=== PATIENT | male | born 1990 | race Caucasian/White ===

== ENCOUNTER 2018-07-05 19:25 | Emergency (ER) | payer BC ==
[2018-07-05 19:54] VITALS: BP 130/72
--- NOTE | 2018-07-05 20:12 | ED ---
Throat Pain/Nasal Congestion - HPI Summary HPI Summary: 28 yr old male with the complaint of decreased hearing both ears for two weeks, and feeling like they are plugged. he has not had cold or sinus symptoms. No sore throat. 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 4 yrs ago he had same symptoms and had cerumen impactions. removal of the wax relieved his hearing difficulty. He states he received real stressful news yesterday and while driving felt SOB and hyperventilated. He has not had any symptoms today. Denies CP, cough, fever, chills. - History of Current Complaint Chief Complaint: UCRespiratory Time Seen by Provider: 07/05/18 19:58 - Allergies/Home Medications Allergies/Adverse Reactions: Allergies Allergy/AdvReac Type Severity Reaction Status Date / Time No Known Allergies Allergy Verified 07/05/18 19:47 PMH/Surg Hx/FS Hx/Imm Hx Endocrine/Hematology History: Denies: Hx Diabetes Respiratory History: Reports: Hx Asthma - Surgical History Surgery Procedure, Year, and Place: appy, tonsils. collarbone- plates/screws Infectious Disease History: No Infectious Disease History: Denies: Hx Clostridium Difficile, Hx Hepatitis, Hx Human Immunodeficiency Virus (HIV), Hx of Known/Suspected MRSA, Hx Shingles, Hx Tuberculosis, Hx Known/ Suspected VRE, Hx Known/Suspected VRSA, History Other Infectious Disease, Traveled Outside the in Last 30 Days - Family History Known Family History: Positive: None - Social History Occupation: Employed Full-time Lives: With Family Alcohol Use: Rare Substance Use Type: Reports: None Smoking Status (MU): Never Smoked Tobacco Review of Systems Constitutional: Negative Eyes: Negative Positive: Other - decreased hearing bilateral. Positive: Anxious All Other Systems Reviewed And Are Negative: Yes Physical Exam Triage Information Reviewed: Yes Vital Signs On Initial Exam: Initial Vitals Temp Pulse Resp BP Pulse Ox 97.7 F 78 14 130/72 100 07/05/18 19:47 07/05/18 19:47 07/05/18 19:47 07/05/18 19:47 07/05/18 19:47 Vital Signs Reviewed: Yes Appearance: Positive: Well-Appearing, No Pain Distress, Well-Nourished Skin: Positive: Warm, Skin Color Reflects Adequate Perfusion Head/Face: Positive: Normal Head/Face Inspection Eyes: Positive: EOMI ENT: Positive: Pharynx normal, TMs normal - viewed bilateral without any effusion. No wax present in the external canals. Neck: Positive: Nontender Respiratory/Lung Sounds: Positive: Clear to Auscultation, Breath Sounds Present Cardiovascular: Positive: RRR. Negative: Murmur Abdomen Description: Positive: Nontender Musculoskeletal: Positive: Strength/ROM Intact Neurological: Positive: Sensory/Motor Intact, Alert, Oriented to Person Place, Time, CN Intact II-III, Normal Gait, Speech Normal Psychiatric: Positive: Normal - [place] Coma Scale Best Eye Response: 4 - Spontaneous Best Motor Response: 6 - Obeys Commands Best Verbal Response: 5 - Oriented Coma Scale Total: 15 Diagnostics - Vital Signs Vital Signs Temp Pulse Resp BP Pulse Ox 07/05/18 19:47 97.7 F 78 14 130/72 100 - Laboratory Lab Statement: Any lab studies that have been ordered have been reviewed, and results considered in the medical decision making process. EENT Course/Dx - Course Course Of Treatment: 28yr old with decreased hearing bilateral. Refer to ENT for hearing testing. Anxiety, stress seem to explain his brief episode of hyperventilation and feeling of SOB yesterday. - Diagnoses Provider Diagnoses: Anxiety, Decreased hearing of both ears Discharge - Sign-Out/Discharge Documenting (check all that apply): Patient Departure All imaging exams completed and their final reports reviewed: No Studies - Discharge Plan Condition: Good Disposition: HOME Patient Education Materials: Hypertension (ED), Hearing Loss (ED), Anxiety (ED) Referrals: No Primary Care Phys,NOPCP [Primary Care Provider] - Dk Cuellar MD [Medical Doctor] - [facility] [place] [facility] [Outside] - Billing Disposition and Condition Condition: GOOD Disposition: Home
== END 2018-07-05 20:27 | disposition home or self-care (01) ==
LOC: UCCORT 19:25
DX: F41.9 Anxiety disorder, unspecified (principal); H91.93 Unspecified hearing loss, bilateral
CPT/HCPCS: 99202; G0463